=== PATIENT | male | born 1985 | race Caucasian/White ===

== ENCOUNTER 2018-01-27 12:37 | Emergency (ER) | payer OTHER ==
[~2018-01-27] VITALS: Ht 175.3 cm; Wt 97.1 kg
[~2018-01-27 12:37] MED LIST: BUDEPRION XL300 MG; FIORICET 50-321 EACH PO; NOHOMEMEDICATIONS; NYQUIL D COLD295 ML
[2018-01-27] MEDS ORDERED: MAXALT10 MG PO (12:54)
[2018-01-27 14:02] VITALS: BP 126/72
== END 2018-01-27 14:04 | disposition home or self-care (01) ==
LOC: M.ERS 12:37
DX: R51 Headache (principal); Z88.5 Allergy status to narcotic agent; Z88.6 Allergy status to analgesic agent

== ENCOUNTER 2018-08-12 04:26 | Emergency (ER) | payer OTHER ==
[~2018-08-12] VITALS: Ht 175.3 cm; Wt 104.3 kg
[~2018-08-12 04:26] MED LIST changes: +MAXALT10 MG PO
[2018-08-12 04:32] VITALS: BP 143/88
[2018-08-12] MEDS ORDERED: OMEPRAZOLE20 M2 PO (04:35)
[2018-08-12] MEDS ORDERED: ALLOPURINOL 10100 M2 PO (04:36)
[2018-08-12] MEDS ORDERED: SINGULAIR 10 MG10 M1 PO (04:36)
[2018-08-12] MEDS ORDERED: PAROXETINE7.5 MG PO (04:37)
== END 2018-08-12 06:17 | disposition home or self-care (01) ==
LOC: M.ERS 04:26
DX: R04.0 Epistaxis (principal); G43.909 Migraine, unspecified, not intractable, without status migrainosus; Z88.5 Allergy status to narcotic agent; Z88.6 Allergy status to analgesic agent